=== PATIENT | male | born 1980 | race Caucasian/White ===

== ENCOUNTER 2018-04-16 15:52 | Emergency (ER) | payer MEDICAID ==
[~2018-04-16] VITALS: Ht 167.6 cm; Wt 0.7 kg
[~2018-04-16 15:52] MED LIST: PHEN100C4 PO
[2018-04-16] MEDS ORDERED: ondansetron/PF 4mg/2ml inj IV ONE (16:40)
[2018-04-16] MEDS ORDERED: normal saline 1000ML IV soln IVB ONE (16:40)
[2018-04-16 17:44] LABS: BASOPHILS % (AUTO) 0.3 % (0-1); EOSINOPHILS # (AUTO) 0.2 X10'3 (0-0.9); EOSINOPHILS % (AUTO) 2.5 % (0-6); HEMATOCRIT 45.1 % (42.0-52.0); HEMOGLOBIN 15.4 g/dl (14.0-17.9); LYMPHOCYTES # (AUTO) 0.9 X10'3 (1.1-4.8); LYMPHOCYTES % (AUTO) 11.4 % (21-51); MEAN CORPUSCULAR HEMOGLOBIN 31.2 PG (27.0-31.0); MEAN CORPUSCULAR HGB CONC 34.2 % (33.0-36.5); MEAN CORPUSCULAR VOLUME 91.4 FL (78-98); MEAN PLATELET VOLUME 8.7 FL (7.4-10.4); MONOCYTES # (AUTO) 0.7 X10'3 (0-0.9); MONOCYTES % (AUTO) 9.8 % (2-12); NEUTROPHILS # (AUTO) 5.7 X10'3 (1.8-7.7); PLATELET COUNT 184 X10'3 (140-440); RED BLOOD COUNT 4.94 X10'6 (4.70-6.10); RED CELL DISTRIBUTION WIDTH 12.9 % (11.5-14.5); WHITE BLOOD COUNT 7.5 X10'3 (4.5-11.0)
[2018-04-16 17:59] LABS: ALANINE AMINOTRANSFERASE 34 U/L (12-78); ALBUMIN 3.9 G/DL (3.4-5.0); ALKALINE PHOSPHATASE 145 IU/L (46-116); ANION GAP 6 (8-16); ASPARTATE AMINO TRANSFERASE 22 U/L (10-37); BILIRUBIN,TOTAL 0.4 MG/DL (0.1-1.0); BLOOD UREA NITROGEN 24 MG/DL (7-18); BUN/CREATININE RATIO 31.6 (5.4-32.0); CALCIUM 8.5 MG/DL (8.5-10.1); CHLORIDE 102 MMOL/L (99-107); CREATININE 0.76 MG/DL (0.60-1.10); GLUCOSE 115 MG/DL (70-104); LIPASE 95 U/L (73-393); POTASSIUM 3.7 MMOL/L (3.5-5.1); SODIUM 139 MMOL/L (135-145); TOTAL CARBON DIOXIDE 31.1 MMOL/L (24-32); TOTAL PROTEIN 7.9 G/DL (6.4-8.2); eGFR > 90 ML/MIN
[2018-04-16] MEDS ORDERED: ONDA4TAB9 SL (18:58)
[2018-04-16 19:19] VITALS: BP 124/77
[2018-04-16 19:41] LABS: PHENYTOIN (DILANTIN) 4.8 UG/ML (10.0-20.0)
== END 2018-04-16 19:24 | disposition home or self-care (01) ==
LOC: ER 15:54
DX: R11.2 Nausea with vomiting, unspecified (principal); R19.7 Diarrhea, unspecified; Z90.49 Acquired absence of other specified parts of digestive tract
CPT/HCPCS: 36415; 80053; 80185; 83690; 85025; 96361; 96374; 99283; J2405; J7030

== ENCOUNTER 2018-09-01 10:11 | Emergency (ER) | payer MEDICAID ==
[~2018-09-01] VITALS: Ht 172.7 cm; Wt 80.0 kg
[2018-09-01] MEDS ORDERED: ketorolac trometh. 30mg/ml inj. IV ONE (12:10)
[2018-09-01] MEDS ORDERED: normal saline 1000ML IV soln IVB ONE (12:10)
[2018-09-01] MEDS ORDERED: pantoprazole 40 MG vial IV ONE (12:10)
[2018-09-01] MEDS ORDERED: ondansetron/PF 4mg/2ml inj IV ONE (12:10)
[2018-09-01] MEDS ORDERED: acetaminophen 325mg tablet PO ONE (12:10)
[2018-09-01] MEDS ORDERED: IBUP-1984 PO (12:12)
[2018-09-01] MEDS ORDERED: ONDA8TAB6 PO (12:12)
[2018-09-01] MEDS ORDERED: ACET-2615 PO (12:12)
[2018-09-01 13:39] VITALS: BP 101/67
== END 2018-09-01 13:48 | disposition home or self-care (01) ==
LOC: ER 10:12
DX: R51 Headache (principal); R50.9 Fever, unspecified; Z90.49 Acquired absence of other specified parts of digestive tract; Z79.899 Other long term (current) drug therapy
CPT/HCPCS: 96374; 96375; 99283; C9113; J1885; J2405; J7030

== ENCOUNTER 2019-10-29 11:32 | Emergency (ER) | payer MEDICAID ==
[~2019-10-29] VITALS: Ht 172.7 cm; Wt 69.0 kg
[~2019-10-29 11:32] MED LIST changes: +ONDA8TAB6 PO
[2019-10-29 13:32] LABS: BASOPHILS % (AUTO) 0.7 % (0-1); EOSINOPHILS # (AUTO) 0.1 X10'3 (0-0.9); EOSINOPHILS % (AUTO) 2.4 % (0-6); HEMATOCRIT 43.4 % (42.0-52.0); HEMOGLOBIN 14.9 g/dl (14.0-17.9); LYMPHOCYTES # (AUTO) 1.2 X10'3 (1.1-4.8); LYMPHOCYTES % (AUTO) 26.2 % (21-51); MEAN CORPUSCULAR HEMOGLOBIN 31.3 PG (27.0-31.0); MEAN CORPUSCULAR HGB CONC 34.3 g/dL (33.0-36.5); MEAN CORPUSCULAR VOLUME 91.2 FL (78-98); MEAN PLATELET VOLUME 8.2 FL (7.4-10.4); MONOCYTES # (AUTO) 0.5 X10'3 (0-0.9); MONOCYTES % (AUTO) 10.2 % (2-12); NEUTROPHILS # (AUTO) 2.7 X10'3 (1.8-7.7); NEUTROPHILS % (AUTO) 60.5 % (42-75); PLATELET COUNT 210 X10'3 (140-440); RED BLOOD COUNT 4.76 X10'6 (4.70-6.10); RED CELL DISTRIBUTION WIDTH 12.9 % (11.5-14.5); WHITE BLOOD COUNT 4.5 X10'3 (4.5-11.0)
[2019-10-29 13:47] LABS: ALANINE AMINOTRANSFERASE 39 U/L (12-78); ALBUMIN/GLOBULIN RATIO 1.1 (1.1-1.5); ALKALINE PHOSPHATASE 153 IU/L (46-116); ANION GAP 7 (8-16); ASPARTATE AMINO TRANSFERASE 24 U/L (10-37); BILIRUBIN,TOTAL 0.3 MG/DL (0.1-1.0); BLOOD UREA NITROGEN 15 MG/DL (7-18); BUN/CREATININE RATIO 13.5 (5.4-32.0); CALCIUM 8.7 MG/DL (8.5-10.1); CHLORIDE 105 MMOL/L (99-107); CREATININE 1.11 MG/DL (0.60-1.10); GLUCOSE 93 MG/DL (70-104); POTASSIUM 4.1 MMOL/L (3.5-5.1); SODIUM 143 MMOL/L (135-145); TOTAL CARBON DIOXIDE 31.4 MMOL/L (24-32); TOTAL PROTEIN 7.6 G/DL (6.4-8.2); eGFR 73 ML/MIN
[2019-10-29 13:49] LABS: C-REACTIVE PROTEIN 0.28 MG/DL (0.0-0.5); CREATINE KINASE 246 U/L (39-308)
[2019-10-29 14:12] LABS: MAGNESIUM 2.4 MG/DL (1.5-2.4); PHOSPHORUS 4.5 MG/DL (2.3-4.5)
[2019-10-29] MEDS ORDERED: gabapentin 400mg capsule PO STA (14:13)
[2019-10-29] MEDS ORDERED: gabapentin 300mg capsule PO STA (14:14)
[2019-10-29] MEDS ORDERED: ketorolac tromethamine 15mg/ml inj. IM ONE (15:35)
[2019-10-29 16:19] VITALS: BP 119/85
== END 2019-10-29 16:20 | disposition home or self-care (01) ==
LOC: ER 11:33
DX: M79.662 Pain in left lower leg (principal); R20.8 Other disturbances of skin sensation; M25.552 Pain in left hip; Z86.69 Personal history of other diseases of the nervous system and sense organs; Z90.89 Acquired absence of other organs; Z79.899 Other long term (current) drug therapy
CPT/HCPCS: 36415; 73502; 80053; 82550; 83735; 84100; 85025; 85651; 86140; 96372; 99285; J1885

== ENCOUNTER 2020-11-10 05:50 | Emergency (ER) | payer MEDICAID ==
[~2020-11-10] VITALS: Ht 167.6 cm; Wt 70.0 kg
[2020-11-10] MEDS ORDERED: acetaminophen 325mg tablet PO ONE (06:20)
[2020-11-10] MEDS ORDERED: LIDOcaine/PRILOcaine 5gm cream TP ONE (06:20)
[2020-11-10] MEDS ORDERED: TETanus/Pertussis (Acell)/Diphther VAC/PF (Tdap-Adult) 0.5ml syringe IMVAC ONE (06:20)
[2020-11-10] MEDS ORDERED: AMOX-419 PO (08:32)
[2020-11-10 09:05] VITALS: BP 116/76
== END 2020-11-10 09:19 | disposition home or self-care (01) ==
LOC: ER 05:50
DX: S01.511A Laceration without foreign body of lip, initial encounter (principal); S06.0X0A Concussion without loss of consciousness, initial encounter; Z20.3 Contact with and (suspected) exposure to rabies; Z86.69 Personal history of other diseases of the nervous system and sense organs; Z90.89 Acquired absence of other organs; Z79.2 Long term (current) use of antibiotics; Z79.899 Other long term (current) drug therapy; Y08.89XA Assault by other specified means, initial encounter; Y93.89 Activity, other specified; Y92.89 Other specified places as the place of occurrence of the external cause; Y99.8 Other external cause status
CPT/HCPCS: 40650; 70450; 90471; 90715; 99284

== ENCOUNTER 2020-11-15 15:57 | Emergency (ER) | payer MEDICAID ==
[~2020-11-15] VITALS: Ht 172.7 cm; Wt 68.2 kg
[~2020-11-15 15:57] MED LIST changes: +AMOX-419 PO
[2020-11-15 16:41] VITALS: BP 116/79
== END 2020-11-15 17:11 | disposition home or self-care (01) ==
LOC: ER 15:58
DX: S01.511D Laceration without foreign body of lip, subsequent encounter (principal); Z48.02 Encounter for removal of sutures; Z86.69 Personal history of other diseases of the nervous system and sense organs; Z90.89 Acquired absence of other organs; Z79.2 Long term (current) use of antibiotics; Z79.899 Other long term (current) drug therapy; X58.XXXD Exposure to other specified factors, subsequent encounter
CPT/HCPCS: 99281